=== PATIENT | female | born 1960 | race Caucasian/White ===

== ENCOUNTER → 2017-05-14 | Outpatient (CLI) | payer BC ==
[~2017-05-14] MED LIST: ASPI-983 PO; ATOR10TA66 PO; HYDR25TA4 PO; IBUP-2055 PO; LEVO25TA5 PO; METO-270 PO; POTA10TA36 PO
--- NOTE | 2017-05-17 14:25 | Diagnostic Imaging Report ---
EXAMINATION: Bilateral screening mammogram 2D views with tomosynthesis. The current study was also evaluated with a Computer Aided Detection (CAD) system. INDICATION: Screening. PERSONAL HISTORY: No current complaints stated on the questionnaire. COMPARISON: 01/24/2015. FINDINGS: The breasts are composed of scattered fibroglandular densities. No mass, architectural distortion, or suspicious cluster of calcifications. Allowing for technique and positional differences, no suspicious change is seen. IMPRESSION: No significant change. ACR BI-RADS Category 2: Benign findings. Result letter will be mailed to the patient. Note: At least 10% of breast cancer is not imaged by mammography. Dictated by: Dictated on workstation # [id number]
== END ==
LOC: RAD 10:49
PROVIDERS: ATTEND Family Medicine
DX: Z12.31 Encounter for screening mammogram for malignant neoplasm of breast (principal)
CPT/HCPCS: 77067

== ENCOUNTER → 2019-10-10 | Outpatient (CLI) | payer BC ==
[~2019-10-10] MED LIST changes: -IBUP-2055 PO; +IBUP-2473 PO; -METO-270 PO; +MTP25TSR PO
--- NOTE | 2019-10-11 09:05 | Diagnostic Imaging Report ---
EXAMINATION: Digital mammogram bilateral screening with CAD. INDICATION: Screening. COMPARISON: This study is compared to the prior exams of 05/14/2017 and 01/24/2015. PERSONAL HISTORY: At this time, there are no current complaints. FINDINGS: There are scattered fibroglandular densities in both breasts which could obscure a lesion. Overall, there does not appear to have been any significant change when compared to the prior exam. No primary or secondary sign of malignancy is noted. IMPRESSION: There is no radiographic evidence for malignancy. ACR BI-RADS Category 1: Negative. Result letter will be mailed to the patient. Note: At least 10% of breast cancer is not imaged by mammography. Dictated by: Dictated on workstation # [id number]
== END ==
LOC: RAD 15:27
PROVIDERS: ATTEND Nurse Practitioner Family
DX: Z12.31 Encounter for screening mammogram for malignant neoplasm of breast (principal)
CPT/HCPCS: 77067

== ENCOUNTER → 2020-03-28 | Outpatient (CLI) | payer BC | LOC: CARD 12:38 | PROVIDERS: ATTEND Nurse Practitioner Family | DX: I08.0 Rheumatic disorders of both mitral and aortic valves (principal); I25.10 Atherosclerotic heart disease of native coronary artery without angina pectoris; E78.5 Hyperlipidemia, unspecified; E66.9 Obesity, unspecified | CPT/HCPCS: 93306 ==

== ENCOUNTER → 2020-04-02 | Outpatient (CLI) | payer BC ==
[~2020-04-02] VITALS: Ht 155 cm; Wt 75.0 kg
[~2020-04-02] MED LIST changes: +CATHETER FLUSH 10 ML SYR IV PRN; +REGADENOSON 0.4 MG/5 ML SYR (LEXISCAN) IV ONE
[2020-04-02 08:56] VITALS: BP 134/53
[2020-04-02 09:27] VITALS: BP 142/82
--- NOTE | 2020-04-02 19:29 | STRESS TEST ---
DATE OF SERVICE: 04/02/2020 RESTING AND POST REGADENOSON TECHNETIUM-99M TETROFOSMIN SPECT CT IMAGING ORDERING PHYSICIAN: Samra Niño APRN PRIMARY PHYSICIAN: Dr. Cisneros. OTHER PHYSICIAN: Dr. Antunez. CLINICAL DIAGNOSES: Shortness of breath, coronary artery disease. Baseline images were carried out after injection of 10.29 mCi of technetium-99m Tetrofosmin. This was followed by 0.4 mg regadenoson and 31.2 mCi of technetium-99m Tetrofosmin for stress imaging. The electrocardiogram showed sinus rhythm at baseline. It did not change significantly with regadenoson infusion. A few isolated premature ventricular contractions were seen during the study. The patient noted mild shortness of breath and mild abdominal and neck discomfort following regadenoson infusion, which resolved in a few minutes. Review of images at rest and following stress does not indicate any significant perfusion defects consistent with significant myocardial ischemia or infarction. Gated images show normal global left ventricular systolic function with normal regional wall motion. Left ventricular ejection fraction is calculated to be 73%. Left ventricular end diastolic volume is 40 mL. CONCLUSIONS: 1. No evidence of any significant myocardial ischemia or infarction on this study. 2. Normal regional wall motion. 3. Normal global left ventricular systolic function with a calculated ejection fraction 73%. Job ID: [id number] DocumentID: [id number] Dictated Date: 04/02/2020 14:56:24 Web Site Manager Date: 04/02/2020 19:28:20 Dictated By: DEJAH ANTUNEZ MD, MA, FACP, FACC,
== END ==
LOC: CARD 07:02
PROVIDERS: ATTEND Nurse Practitioner Family
DX: I25.10 Atherosclerotic heart disease of native coronary artery without angina pectoris (principal); E78.5 Hyperlipidemia, unspecified; I10 Essential (primary) hypertension; E66.9 Obesity, unspecified
CPT/HCPCS: 78452; 93017; A9502

== ENCOUNTER → 2020-07-31 | Outpatient (CLI) | payer BC ==
[~2020-07-31] MED LIST changes: +ASPI-1238 PO; -ASPI-983 PO; -CATHETER FLUSH 10 ML SYR IV PRN; -REGADENOSON 0.4 MG/5 ML SYR (LEXISCAN) IV ONE
== END ==
LOC: LABNPT 08:40
PROVIDERS: ATTEND Family Medicine
DX: R50.9 Fever, unspecified (principal); R53.81 Other malaise; Z20.828 Contact with and (suspected) exposure to other viral communicable diseases
CPT/HCPCS: 87804; U0002; 87635

== ENCOUNTER → 2021-10-10 | Outpatient (CLI) | payer BC, OTHER ==
[~2021-10-10] MED LIST changes: -POTA10TA36 PO; +POTA10TA37 PO
--- NOTE | 2021-10-10 13:14 | Diagnostic Imaging Report ---
INDICATION: Routine screening. COMPARISON is made with prior mammograms from 10/10/2019 and 05/14/2017. 2-D and 3-D bilateral screening mammography was performed with CAD. Scattered fibroglandular densities are identified bilaterally. Occasional benign calcifications are noted. No mass or malignant-appearing microcalcifications are seen. Axillae are unremarkable. IMPRESSION: BI-RADS Category 2 No mammographic features suspicious for malignancy are identified. ACR BI-RADS Category 2: Benign findings. Result letter will be mailed to the patient. Note: At least 10% of breast cancer is not imaged by mammography. \ Dictated by: Dictated on workstation # [id number]
== END ==
LOC: RAD 09:30
PROVIDERS: ATTEND Nurse Practitioner Family
DX: Z12.31 Encounter for screening mammogram for malignant neoplasm of breast (principal)
CPT/HCPCS: 77063; 77067

== ENCOUNTER 2021-10-30 06:33 | Outpatient (CLI) | payer OTHER ==
[~2021-10-30] VITALS: Ht 154.9 cm; Wt 77.1 kg
== END 2021-10-30 12:16 ==
LOC: PREOP 06:33
PROVIDERS: ATTEND Surgery
DX: Z01.818 Encounter for other preprocedural examination (principal)

== ENCOUNTER 2021-11-11 07:24 | Day surgery (SDC) | payer OTHER ==
[~2021-11-11] VITALS: Ht 154.9 cm; Wt 77.1 kg
[2021-11-11] MEDS ORDERED: LACTATED RINGERS 1,000 ML IV STA (07:26)
[2021-11-11 07:38] VITALS: BP 132/62
[2021-11-11] MEDS ORDERED: PROPOFOL INJECTION 50 ML IV ONE (07:55)
--- NOTE | 2021-11-11 08:16 | Progress Note-Pre Operative ---
Pre-Operative Progress Note H&P Reviewed The H&P was reviewed, patient examined and no changes noted. Date Seen by Provider: Nov 11, 2021 Time Seen by Provider: 08:15 Date H&P Reviewed: Nov 11, 2021 Time H&P Reviewed: 08:15 Pre-Operative Diagnosis: hx polyps, family history of colon cancer SHANA YOUNG DO Nov 11, 2021 08:16
--- NOTE | 2021-11-11 09:04 | Anesthesia-General Post-Op ---
MAC Patient Condition Mental Status/LOC: Same as Preop Cardiovascular: Satisfactory Nausea/Vomiting: Absent Respiratory: Satisfactory Pain: Controlled Complications: Absent Post Op Complications Complications None Follow Up Care/Instructions Patient Instructions None needed. Anesthesiology Discharge Order Discharge Order Patient is doing well, no complaints, stable vital signs, no apparent adverse anesthesia problems. No complications reported per nursing. JELENA RIGGINS CRNA Nov 11, 2021 09:04
[2021-11-11 09:05] VITALS: BP 107/54
--- NOTE | 2021-11-11 09:06 | Progress Note-Post Operative ---
Post-Operative Progess Note Surgeon (s)/Batch Blender (s) Surgeon SHANA YOUNG DO Batch Blender: na Pre-Operative Diagnosis hx polyps, family history of colon cancer Post-Operative Diagnosis colon polyps, diverticulosis Procedure & Operative Findings Date of Procedure 11/11/21 Procedure Performed/Findings colonoscopy c hot bx polypectomy x 4 Anesthesia Type per resource management specialist Estimated Blood Loss Estimated blood loss (mL): none Specimens/Packing Specimens Removed colon polyps SHANA YOUNG DO Nov 11, 2021 09:05
--- NOTE | 2021-11-11 09:07 | Discharge Inst-Simple/Standard ---
Discharge Inst-Standard Patient Instructions/Follow Up Plan of Care/Instructions/FU: 2 weeks Zoey Activity as Tolerated: Yes Discharge Diet: Regular Diet (high fiber) SHANA YOUNG DO Nov 11, 2021 09:07
[2021-11-11 09:10] VITALS: BP 123/78
[2021-11-11 09:35] VITALS: BP 83/41
[2021-11-11 09:45] VITALS: BP 83/41
--- NOTE | 2021-11-11 11:10 | OPERATIVE REPORT ---
DATE OF SERVICE: 11/11/2021 PREOPERATIVE DIAGNOSES: History of polyps and family history of colon cancer. POSTOPERATIVE DIAGNOSES: Colon polyps and diverticulosis. PROCEDURES PERFORMED: Colonoscopy with hot biopsy polypectomy x4. SURGEON: Shana Greer DO ANESTHESIA: Per ENTERPRISE ENGINEER. ESTIMATED BLOOD LOSS: None. COMPLICATIONS: None. SPECIMENS: Colon polyps. INDICATIONS FOR PROCEDURE: The patient is a 61-year-old female with history of polyps and family history of colon cancer. She understands the risks and benefits of the procedure and wishes to proceed. Consent was signed in the chart. DESCRIPTION OF PROCEDURE: The patient was taken to the endoscopy suite and placed in the left lateral recumbent position. A timeout was performed. Digital rectal exam was performed. No palpable polyps, masses or ulcerations. Scope was inserted in the rectum and advanced all the way to cecum with minimal difficulty. Prep was adequate. Scope was slowly retracted back. No polyps, masses or ulcerations within the cecum. In the ascending colon, a small polyp was present, which hot biopsy polypectomy was performed. Scope was then continuously and slowly retracted back. No polyps, masses or ulcerations within the remainder of the ascending, transverse, and descending colon. In the sigmoid colon, another polyp was present, which hot biopsy polypectomy was performed. Scope was continuously and slowly retracted back in the rectum, where two polyps were present, which hot biopsy polypectomies were performed. Through the sigmoid colon, there was some diverticulosis present. Once in the rectum, scope was retroflexed as well, noting no other pathology. Scope was returned to its normal position, slowly withdrawn until completely removed. The patient tolerated the procedure well without any complications. She will follow up in the office in two weeks. RECOMMENDATIONS: High-fiber diet due to diverticulosis. We will need repeat colonoscopy in five years due to polyps and family history of colon cancer. Any issues before that be seen at that time. Job ID: [id number] DocumentID: [id number] Dictated Date: 11/11/2021 09:09:48 Cargo And Container Inspector Date: 11/11/2021 11:09:24 Dictated By: SHANA GREER DO
== END 2021-11-11 09:45 | disposition home or self-care (01) ==
LOC: ENDO 07:24
PROVIDERS: ATTEND Surgery
DX: Z12.11 Encounter for screening for malignant neoplasm of colon (principal); K63.5 Polyp of colon; K62.1 Rectal polyp; K52.9 Noninfective gastroenteritis and colitis, unspecified; K57.30 Diverticulosis of large intestine without perforation or abscess without bleeding; Z80.0 Family history of malignant neoplasm of digestive organs; Z87.891 Personal history of nicotine dependence; E66.9 Obesity, unspecified; Z68.32 Body mass index [BMI] 32.0-32.9, adult

== ENCOUNTER 2022-05-10 14:15 | Emergency (ER) | payer SELFPAY ==
[~2022-05-10 14:15] MED LIST changes: +POTA-177 PO; -POTA10TA37 PO
[2022-05-10] MEDS ORDERED: ORPHENADRINE 60 MG/2 ML (NORFLEX) AMP (ED ONLY) IM ONE (14:30)
--- NOTE | 2022-05-10 14:33 | ED Back Pain ---
General Chief Complaint: Back Problems Stated Complaint: BACK PAIN Source of Information: Patient, EMS Exam Limitations: No Limitations History of Present Illness Date Seen by Provider: May 10, 2022 Time Seen by Provider: 14:25 Initial Comments Patient is a 62 yo F who presents to the ED with 3-4 weeks of right buttock/upper leg pain that is radiating down her right leg to her foot. She states the pain acutely worsened about 30 minutes VISUAL STYLIST when she stood up from the couch and attempted to walk. She states she felt a pinching sensation accompanied by severe pain. This prompted her to call EMS. Patient declined analgesia when asked by EMS. She has been taking some of her 's "prescription ibuprofen." She denies any saddle anesthesia or bowel/bladder incontinence. She states ambulation worsens the pain. She denies a h/o diabetes or IV drug use. No other medications have been taken other than the ibuprofen. She has seen a chiropractor for the symptoms as well. Timing/Duration: Other (3-4 weeks) Severity: Severe Pain/Injury Location: Lower Extremity Radiation: Feet, Lower Legs, Upper Legs Modifying Factors: Improves With Movement Allergies and Home Medications Allergies Coded Allergies: chlorhexidine (Verified Allergy, Mild, Rash, 04/02/20) No Known Allergies (Verified Allergy, Unknown, 03/16/16) Patient Home Medication List Home Medication List Reviewed: Yes Atorvastatin Calcium (Atorvastatin Calcium) 10 Mg Tablet, 10 MG PO DAILY, (Reported) Entered as Reported by: ANSON ARREGUIN on 03/03/16 0812 Metoprolol Succinate (Metoprolol Succinate) 25 Mg Tab.er.24h, 25 MG PO DAILY, (Reported) Entered as Reported by: ANSON ARREGUIN on 03/03/16 0812 Review of Systems Constitutional: no symptoms reported EENTM: no symptoms reported Respiratory: no symptoms reported Cardiovascular: no symptoms reported Gastrointestinal: no symptoms reported Genitourinary: no symptoms reported Musculoskeletal: other (right lower extremity pain) Skin: no symptoms reported Psychiatric/Neurological: No Symptoms Reported Past [place]-Ganudn-Uuvkov Hx Patient Social History Tobacco Use?: No Use of E-Cig and/or Vaping dev: No Alcohol Use?: Yes Alcohol Frequency: Once in a while Pt feels they are or have been: No Immunizations Up To Date Influenza Vaccine Up-to-Date: Yes; Up-to-Date First/Initial COVID19 Vaccinat: YES Second COVID19 Vaccination Swapnil: YES Seasonal Allergies Seasonal Allergies: Yes Past Medical History Surgery/Hospitalization HX: HTN, HLD Surgeries: Yes (HEART CATH-CLEAR) Respiratory: No Cardiac: Yes High Cholesterol, Hypertension Neurological: No Genitourinary: No Gastrointestinal: No Musculoskeletal: No Endocrine: No HEENT: No Cancer: No Psychosocial: No Integumentary: No Blood Disorders: No Family Medical History Colon cancer Physical Exam Vital Signs Capillary Refill : Height, Weight, BMI Height: 5'1.00" Weight: 153lbs. 0.0oz. [id number]; 32.13 BMI Method: General Appearance: No Apparent Distress, WD/WN HEENT: PERRL/EOMI, TMs Normal, Normal ENT Inspection, Pharynx Normal Neck: Full Range of Motion, Normal Inspection, Non Tender, Supple Cardiovascular: Regular Rate, Rhythm, No Edema, No Gallop, Normal Peripheral Pulses Respiratory: Chest Non Tender, Lungs Clear, Normal Breath Sounds Gastrointestinal: Normal Bowel Sounds Back: Normal Inspection, No Vertebral Tenderness Extremity: Normal Capillary Refill, Normal Inspection, Other (mild TTP noted to the right upper leg just distal to the gluteal crest medial>lateral) Neurologic/Psychiatric: Alert, Oriented x3, No Motor/Sensory Deficits, Normal Mood/Affect, dust brush assembler II-XII Norm as Tested Skin: Normal Color, Warm/Dry Lymphatic: No Adenopathy Progress/Results/Core Measures Results/Orders My Orders Orders - ORTEGA,WANG PSYCHOLOGIST COUNSELING Orphenadrine Inj (Ed Only) (Norflex Inje (05/10/22 14:30) Progress Progress Note : Progress Note Patient is nontoxic and well hydrated on exam. Vital signs are reassuring. Patient denies saddle anesthesia, bowel/bladder incontinence, or inability to walk. Low suspicion for epidural abscess or hematoma at this time. Pt denies h/o diabetes or IV drug use. She denies any recent acute injury. This makes imaging in the ED of very low diagnostic utility. Patient declined narcotic analgesia from EMS. She recently took ibuprofen ~2-3 hours VISUAL STYLIST. Will give IM muscle relaxer. Discussed need for close follow-up. Supportive care and anticipatory guidance discussed. Patient educated that time is the ultimate largest improver of these type of symptoms. We will attempt to ameliorate her symptoms as much as possible in the interim. Follow-up with your PCP as scheduled on Wednesday. Return precautions for urgent symptomology discussed. Patient verbalized understanding. Departure Impression Primary Impression: Lumbar radiculopathy Disposition: 01 HOME, SELF-CARE Condition: Stable Departure-Patient Inst. Decision time for Depature: 14:40 Referrals: TRES THOMAS MD (PCP/Family) Primary Care Physician Patient Instructions: Radiculopathy (DC) Add. Discharge Instructions: This type of back/leg pain is difficult to treat. There appears to be nothing on your exam that is concerning for any kind of process that would need emergent surgical intervention or hospital stay. The mainstays of treatment are anti- inflammatory pain medications with the addition of muscle relaxers in some cases. Studies have not found that patients have a lot of improvement with or without muscle relaxers, but it is a reasonable option as they are typically well tolerated. Any imaging we could obtain in the emergency department is unlikely to be helpful as xrays and CT sans will not show any inflammation in the muscles/nerves. Sometimes an MRI is obtained in patients that have this type of pain that does not resolve on its own. This is not a study we can obtain today in the emergency department and is usually ordered by your PCP or a specialist. Please follow-up with your PCP on Wednesday as scheduled. Return to the emergency department if you have numbness of your buttocks and/or gential region or if you lose control of your bowel/bladder. All discharge instructions reviewed with patient and/or family. Voiced understanding. WANG ORTEGA APRN May 10, 2022 14:33
[2022-05-10] MEDS ORDERED: CYCL5TAB PO ×2 (14:50→14:59)
[2022-05-10] MEDS ORDERED: LIDO700A45 TP ×2 (14:50→14:59)
[2022-05-10] MEDS ORDERED: IBUP-1780 PO ×2 (14:50→14:59)
[2022-05-10 14:57] VITALS: BP 136/91
== END 2022-05-10 15:04 | disposition home or self-care (01) ==
LOC: EDUNIT# 14:15 → ER 14:16
DX: M54.16 Radiculopathy, lumbar region (principal)
CPT/HCPCS: 96372; 99284

== ENCOUNTER → 2022-09-28 | Outpatient (CLI) | payer OTHER ==
[~2022-09-28] MED LIST changes: +CYCL5TAB PO; +IBUP-1780 PO; +LIDO700A45 TP
== END ==
LOC: CARD 12:29
PROVIDERS: ATTEND Nurse Practitioner Family
DX: I51.7 Cardiomegaly (principal); I34.0 Nonrheumatic mitral (valve) insufficiency; I35.1 Nonrheumatic aortic (valve) insufficiency
CPT/HCPCS: 93306

== ENCOUNTER → 2022-10-23 | Outpatient (CLI) | payer OTHER ==
--- NOTE | 2022-10-23 10:11 | Diagnostic Imaging Report ---
Indication: Routine screening. Comparison is made with prior mammograms from 10/10/2021 and 10/10/2019. 2-D and 3-D bilateral screening mammography was performed with CAD. Scattered fibroglandular densities are identified bilaterally. The parenchymal pattern is stable. No mass or malignant-appearing microcalcifications are seen. Axillae are unremarkable. IMPRESSION: BI-RADS Category 1 No mammographic features suspicious for malignancy are identified. ACR BI-RADS Category 1: Negative. Result letter will be mailed to the patient. Note: At least 10% of breast cancer is not imaged by mammography. Dictated by: Dictated on workstation # [id number]
== END ==
LOC: RAD 07:30
PROVIDERS: ATTEND Nurse Practitioner Family
DX: Z12.31 Encounter for screening mammogram for malignant neoplasm of breast (principal)
CPT/HCPCS: 77063; 77067